=== PATIENT | male | born 1995 ===

== ENCOUNTER 2023-05-21 09:57 | Outpatient (AMB) | payer OTHER, SELFPAY ==
--- NOTE | 2023-05-21 10:32 | AM.OFFWIN_ITS ---
Intake Vital Signs 05/21/23 10:35 Height 5 ft 1 in Weight 161 lb BMI 30.4 BP 118/70 Blood Pressure Location Lt brachial Position Sitting Pulse 70 Pulse Source Pulse Oximeter Temp 98.4 F Temp Source Temporal Artery Scan Pulse Oximetry (%) 98 Oxygen Delivery Method Room Air Intake Visit Reasons: EP, right eye redness Intake Note: pt is here for c/o right eye redness Patient Tobacco Use Status: Never used Tobacco Allergies No Known Allergies Allergy (Verified 05/21/23 10:36) Do you need a note to return to daycare/school/sports/work: Yes HPI HPI Comments History of Present Illness Details 27 yo M from the day program that presen t w/ R eye irritation x1 day. Endorses crusting no discharge or fevers PFSH Social History Patient Tobacco Use Status: Never used Tobacco Review of Systems Eyes Reports irritation Physical Exam Vital Signs: Last Vital Signs Temp 98.4 F 05/21/23 10:35 Pulse 70 05/21/23 10:35 BP 118/70 05/21/23 10:35 Pulse Ox 98 05/21/23 10:35 Oxygen Delivery Method Room Air 05/21/23 10:35 BMI result Body Mass Index 30.4 Const General: healthy appearing, comfortable, no acute distress and alert Orientation/consciousness: patient oriented x3 Limitations: no limitations HEENT Other: Conjunctival injection of the R eye. Compartments soft. VA grossly intact Head: Yes normal to inspection Ears: hearing grossly normal bilaterally Resp Effort & Inspection: normal respiratory effort and able to speak in complete sentences Cardio Rate: regular rate Skin General skin exam: no rashes or lesions noted Neuro General: patient oriented x3 Extrem General: Yes normal to inspection Assessment & Plan Assessment & Plan (1) Conjunctivitis: Code(s): H10.9 - Unspecified conjunctivitis Qualifiers: Conjunctivitis type: unspecified Laterality: right Qualified Code(s): H10.9 - Unspecified conjunctivitis Plan: Conjunctival injection of the R eye. Compartments soft. VA grossly intact. Symptoms consistent w/ conjunctivitis. Polytrim ordere Discharge instructions, follow up and treatment are discussed with patient in my usual fashion. Alternatives in treatment are also discussed. The patient will return for worsening symptoms or as needed. Advised that any labs/imaging ordered will be followed up on and contact made if further treatment needed. Counseled that patient's condition may require further evaluation and/or treatment. Symptoms of concern for worsening disorder discussed in detail in my customary manner. Patient does verbalize understanding of the plan, there are no apparent barriers to communication. The patient is given the opportunity to ask questions and have them answered to his/her satisfaction Medications: New polymyxin B sulf-trimethoprim 10,000 unit- 1 mg/mL while awake; do not exceed 6 doses in 24 hours 1 drp ophthalmic (eye) Q3H 10 mL 0RF 7 days Coding Level of Care Code Est Pt Level 3 (22557) Diagnoses Conjunctivitis of right eye, unspecified conjunctivitis type H10.9 Conjunctivitis type: unspecified Laterality: right
[2023-05-21 10:35] VITALS: BP 118/70; PULSE 70; TEMP 36.9; O2SAT 98; BMI 30.4
== END 2023-05-21 10:48 | disposition home or self-care (01) ==
PROVIDERS: PCP Nurse Practitioner Pediatrics; Visit Provider Physician Assistant
DX: H10.9 Unspecified conjunctivitis (principal)
CPT/HCPCS: 99213

== ENCOUNTER 2023-07-05 09:12 | Outpatient (REF) | payer OTHER, SELFPAY ==
--- NOTE | 2023-07-05 10:30 | MHC.AU.MED ---
Medical Clearance for Hearing Instrumentation Date: 07/05/23 Patient Name: Jason Centeno Date of : 1995 Primary Care Provider: Referring Provider: Benson Romero III, MD We have seen your patient on 07/05/23 and have determined that they are a candidate for amplification (See accompanying report). Specifically, they would benefit from: Hearing aid use in both ears There is a statute that addresses Medical Evaluation Requirements prior to fitting a patient with a hearing aid. According to [place] statute 265 CMR:6.03(1), (a) General. Except as provided in 265 CMR 6.03(1)(b), a hearing screen coordinator shall not sell a hearing aid unless the prospective user has presented to the hearing screen coordinator a written statement signed by a licensed physician that states that the patient's hearing loss has been medically evaluated and the patient may be considered a candidate for a hearing aid. The medical evaluation must have taken place within the preceding six months. Please note: Due to the [place] Statute referenced above, we cannot accept a signature other than that of a licensed physician. [place] and [place] signatures cannot be accepted. I am in agreement with the above recommendation. There is no medical contraindication for hearing instrumentation. Physician Signature Date Physician Name (Printed)
--- NOTE | 2023-07-05 11:16 | MHC.AU.HA1 ---
Hearing Aid Evaluation Date of Visit: 07/05/23 Historical Information: Description of Hearing: Moderate to mild sloping back to moderate mixed loss right ear Moderate to profound mixed loss left ear Summary: Jason has not worn his hearing aids in a long time but is ready to start wearing them again. He is interested in rechargeable BTEs that connect to his phone, iPad, and laptop. Selected Phonak Mary L70-PRs in [facility]. Earmold impressions taken without incident, will order full shell Gel-e-burst blue and red. Hearing Aid Prescription: Based on the individual?s shared listening needs, communication environments, dexterity, desire for connectivity, and personal preferences, the following prescription for amplification has been made: Right ear: Make, Model, Color: Phonak Mary L70-[place] Battery Size: Rechargeable Book Reviewer/Slim Tube: Type of Earmold/Dome/CShell/SlimTip: Full shell Left ear: Left ear prescription to be same as Right Hearing Aid above: Make, Model, Color: Phonak Mary L70-[place] Battery Size: Rechargeable Book Reviewer/Slim Tube: Type of Earmold/Dome/CShell/SlimTip: Full shell Accessories/Assistive Technology Recommended: Plan of Care: Patient wishes to purchase hearing aids as prescribed Action Taken/Action Needed: Medical Clearance to be requested from PCP/ENT Primary Diagnosis: H90.6 Mixed Hearing Loss, Bilateral Signature: Provider: Cinthia Blake, CCC-A
== END 2023-07-05 09:13 | disposition home or self-care (01) ==
LOC: HO.SH 09:12
PROVIDERS: Visit Provider Internal Medicine
DX: Z01.118 Encounter for examination of ears and hearing with other abnormal findings (principal); Z46.1 Encounter for fitting and adjustment of hearing aid; H90.6 Mixed conductive and sensorineural hearing loss, bilateral
CPT/HCPCS: 92557; 92567; 92591; V5275

== ENCOUNTER 2023-10-14 14:56 | Outpatient (REF) | payer OTHER, SELFPAY ==
--- NOTE | 2023-10-14 15:57 | MHC.AU.HA2 ---
Hearing Instrument Fitting- Adult- Binaural Date of Visit: 10/14/23 Hearing Instruments Dispensed: Right Ear: Make, Model, Color, Serial Number: Phonak Mary L70-MS [place] S#[id number] [employer] Worker Repair Warranty: 10/15/2026 [employer] Worker Loss and Damage Warranty: 10/15/2026 [facility] Service Plan: 10/13/2024 Battery Size: Rechargeable Earmold/Dome/CShell/SlimTip: Full shell Left Ear: Make, Model, Color, Serial Number: Phonak Mary L70-MS [place] S#[id number] [employer] Worker Repair Warranty: 10/15/2026 [employer] Worker Loss and Damage Warranty: 10/15/2026 [facility] Service Plan: 10/13/2024 Battery Size: Rechargeable Earmold/Dome/CShell/SlimTip: Full shell Accessories/Assistive Technology: Phonak dry pan charger combi S#[id number] Summary of Fitting: Accompanied by mother. Wax removal had been recommended at his last visit. Otoscopy reveals non occluding dry skin in canals and fei Au. Fit with and oriented to binaural Phonak Mary L70 [place] HAs with custom earmolds. Earmold fit looks good. Good subjective comfort and benefit reported. Verified fitting to L Adult 5 targets. VC disabled. Reviewed charging, use and care. Practiced insertion and removal of hearing aids. Connected aids via bluetooth to iPhone and laptop. Recommendations: Recommendations: Hearing instrument care and maintenance were discussed and practiced. The instrument(s) were paired to the patient's smartphone. A hearing instrument follow-up was scheduled. Diagnosis Code(s): Primary Diagnosis: H90.6 Mixed Hearing Loss, Bilateral Signature: Provider: Jose Merrill, [facility]
== END 2023-10-14 14:57 | disposition home or self-care (01) ==
LOC: HO.HAP 14:56
PROVIDERS: Visit Provider Internal Medicine
DX: Z46.1 Encounter for fitting and adjustment of hearing aid (principal); H90.6 Mixed conductive and sensorineural hearing loss, bilateral
CPT/HCPCS: V5011; V5020; V5160; V5261; V5264

== ENCOUNTER 2023-10-30 08:23 | Outpatient (REF) | payer OTHER, SELFPAY ==
--- NOTE | 2023-10-30 09:43 | MHC.AU.HA3 ---
Hearing Instrument Follow-Up- Binaural Date of Visit: 10/30/23 Right Ear: Alex, Model, Color, Serial Number: Charlotte Hernandez L70-[place] Fe S#[id number] Overlocker Repair Warranty: 10/15/2026 Overlocker Loss and Damage Warranty: 10/15/2026 [facility] Service Plan: 10/13/2024 Battery Size: Rechargeable Earmold/Dome/CShell/SlimTip:Full shell Type of Wax Guard: Dispensed By: [facility] Date of Fittin10/14/23 Left Ear: Alex, Model, Color, Serial Number: Charlotte Ivy70-SAMARIA [place] S#[id number] Overlocker Repair Warranty: 10/15/2026 Overlocker Loss and Damage Warranty: 10/15/2026 [facility] Service Plan: 10/13/2024 Battery Size: Rechargeable Earmold/Dome/CShell/SlimTip: Full shell Type of Wax Guard: Dispensed By: [facility] Date of Fittin10/14/23 Follow-Up Summary: Here for hearing aid follow up, accompanied by mother. Reports right is not working. Found tube clogged with wax. Replaced tube, listening check positive. Checked left aid, listening check positive. Demonstrated use of tool to remove wax from end of tube. Jason requested VC button. Activated. Reviewed use. It was noted that Jason has been unplugging the cash management coordinator once the hearing aids are charged and letting the hearing aids sit in the cash management coordinator on until he is ready to wear them and then they are not lasting all day. Advised to leave cash management coordinator plugged in. Recommendations: Recommendations: Hearing instrument maintenance in 6 months, or sooner if needed. Diagnosis Code(s): Primary Diagnosis: H90.6 Mixed Hearing Loss, Bilateral Signature: Provider: Jose Merrill, [facility]
== END 2023-10-30 08:24 | disposition home or self-care (01) ==
LOC: HO.HAP 08:23
PROVIDERS: PCP Internal Medicine; Visit Provider Internal Medicine
DX: Z13.89 Encounter for screening for other disorder (principal)

== ENCOUNTER 2024-01-02 14:09 | Outpatient (REF) | payer OTHER, SELFPAY ==
--- NOTE | 2024-01-02 14:54 | MHC.AU.HA3 ---
Hearing Instrument Follow-Up- Binaural Date of Visit: 01/02/24 Right Ear: Alex, , Color, Serial Number: Charlotte Hernandez L70-[place] Fe S#[id number] Fulling Machine Operator Repair Warranty: 10/15/2026 Fulling Machine Operator Loss and Damage Warranty: 10/15/2026 [facility] Service Plan: 10/13/2024 Battery Size: Rechargeable Automobile Locator/Slim Tube: Earmold/Dome/CShell/SlimTip:Full shell Type of Wax Guard: Dispensed By: [facility] Date of Fittin10/14/23 Left Ear: Alex, Model, Color, Serial Number: Charlotte Hernandez L70-[place] Fe S#[id number] Fulling Machine Operator Repair Warranty: 10/15/2026 Fulling Machine Operator Loss and Damage Warranty: 10/15/2026 [facility] Service Plan: 10/13/2024 Battery Size: Rechargeable Automobile Locator/Slim Tube: Earmold/Dome/CShell/SlimTip: Full shell Type of Wax Guard: Dispensed By: [facility] Date of Fittin10/14/23 Follow-Up Summary: Here for maintenance. Jason reports he has been using the tool to clean wax out of the tubes but there is still some wax built up. Found wax deep in both tubes. Cleaned aids, cleaned earmolds, changed tubing. Listening check positive. Recommendations: Recommendations: Hearing instrument maintenance in 6 months, or sooner if needed. Diagnosis Code(s): Primary Diagnosis: H90.6 Mixed Hearing Loss, Bilateral Signature: Provider: Jose Merrill, [facility]
== END 2024-01-02 14:10 | disposition home or self-care (01) ==
LOC: HO.HAP 14:09
PROVIDERS: Visit Provider Internal Medicine
DX: Z46.1 Encounter for fitting and adjustment of hearing aid (principal); H90.6 Mixed conductive and sensorineural hearing loss, bilateral
CPT/HCPCS: 92593; 99499

== ENCOUNTER 2024-03-06 08:55 | Outpatient (REF) | payer OTHER, SELFPAY | END 2024-03-06 08:56 | disposition home or self-care (01) | LOC: HO.HAP 08:55 | PROVIDERS: Visit Provider Internal Medicine | DX: Z13.89 Encounter for screening for other disorder (principal) ==

== ENCOUNTER 2024-04-01 09:08 | Outpatient (REF) | payer OTHER, SELFPAY | END 2024-04-01 09:09 | disposition home or self-care (01) | LOC: HO.HAP 09:08 | PROVIDERS: Visit Provider Internal Medicine | DX: Z13.89 Encounter for screening for other disorder (principal) ==

== ENCOUNTER 2024-04-02 13:22 | Outpatient (REF) | payer OTHER, SELFPAY | END 2024-04-02 13:23 | disposition home or self-care (01) | LOC: HO.HAP 13:22 | PROVIDERS: Visit Provider Internal Medicine | DX: Z13.89 Encounter for screening for other disorder (principal) ==

== ENCOUNTER 2024-06-11 09:05 | Outpatient (REF) | payer OTHER, SELFPAY ==
--- NOTE | 2024-06-11 15:52 | MHC.AU.HA3 ---
Hearing Instrument Follow-Up- Binaural Date of Visit: 06/11/24 [employer] Member Used: Right Ear: Alex, Model, Color, Serial Number: Charlotte Hernandez L70-SAMARIA [place] S#[id number] [employer] Reporter Repair Warranty: 10/15/2026 [employer]antile Reporter Loss and Damage Warranty: 10/15/2026 [facility] Service Plan: 10/13/2024 Battery Size: Rechargeable Car Worker/Slim Tube: Earmold/Dome/CShell/SlimTip:Full shell Type of Wax Guard: Dispensed By: [facility] Date of Fittin10/14/23 Left Ear: Alex, Model, Color, Serial Number: Charlotte Hernandez L70-SAMARIA [place] S#[id number] [employer]ile Reporter Repair Warranty: 10/15/2026 Mercantile Reporter Loss and Damage Warranty: 10/15/2026 [facility] Service Plan: 10/13/2024 Battery Size: Rechargeable Car Worker/Slim Tube: Earmold/Dome/CShell/SlimTip: Full shell Type of Wax Guard: Dispensed By: [facility] Date of Fittin10/14/23 Follow-Up Summary: Here for maintenance. Reports aids need to be re-paired to his phone. Reports feedback. Cleaned and checked aids, cleaned earmolds, replaced tubing. Listening check positive. Paired aids with phone. Found slight feedback coming from aids. Found that Jason was not fully inserting the top portion of the shell into his ear. Reinstructed. Also found visually occluding cerumen Au. Cerumen removal recommended. Recommendations: Recommendations: Hearing instrument maintenance in 6 months, or sooner if needed. Diagnosis Code(s): Primary Diagnosis: H90.A32 Mixed HL, Unilateral, Left Ear, W/Restricted Contralateral Secondary Diagnosis: H90.A21 SNHL, Unilateral Right Ear, W/Restricted Contralateral Hearing Signature: Provider: Jose Merrill, [facility]
== END 2024-06-11 09:06 | disposition home or self-care (01) ==
LOC: HO.HAP 09:05
PROVIDERS: Visit Provider Internal Medicine
DX: Z13.89 Encounter for screening for other disorder (principal)